=== PATIENT | female | born 1965 | race Caucasian/White ===

== ENCOUNTER 2016-04-05 05:41 | Day surgery (SDC) | payer OTHER ==
[~2016-04-05] VITALS: Ht 170.2 cm; Wt 85.0 kg
[~2016-04-05 05:41] MED LIST: ASPIRIN LOW DOS81 M1; ATIVAN0.5 MG PO; BENTYL10 MG PO; BUSPAR15 MG PO; CARAFATE1 GM PO; GLUCOPHAGE500 MG PO; KLOR-CON M2020 MEQ; LEXAPRO20 MG PO; LIPITOR20 MG PO; LISINOPRIL5 MG PO; LO-DOSE ASPIRIN81 M1 PO; METOPROLOL SUCC50 MG; NOVOLIN N100 UNITS/ SC; NOVOLOG 10100 UNITS/; NOVOLOG PE100 UNITS/; OMEPRAZOLE40 M1 PO; PROAIR HFA8.5 GM; VICTOZA 2-0.6 MG/0.1 SC; VITAMIN D2000 INTUN PO
[2016-04-05 05:57] VITALS: BP 189/98
[2016-04-05 06:17] LABS: POINT-OF-CARE METER ID UU14174212
[2016-04-05 10:09] VITALS: BP 172/86
[2016-04-05 11:42] VITALS: BP 178/73
== END 2016-04-05 11:16 | disposition home or self-care (01) ==
LOC: SDC 05:41 → EDSTATUS 16:02 → 2SOUTH 16:02 → SDC 16:03
PROVIDERS: Surgery
PROC: 0FT44ZZ Resection of Gallbladder, Percutaneous Endoscopic Approach (ICD-10-PCS; principal; 2016-04-05)
DX: K80.10 Calculus of gallbladder with chronic cholecystitis without obstruction (principal); K66.0 Peritoneal adhesions (postprocedural) (postinfection); I10 Essential (primary) hypertension; E11.9 Type 2 diabetes mellitus without complications; E78.5 Hyperlipidemia, unspecified; F41.1 Generalized anxiety disorder; Z98.84 Bariatric surgery status
CPT/HCPCS: 82948; 88304; J0330; J0690; J1170; J1200; J1644; J1885; J2250; J2405; J3010; S0020